=== PATIENT | female | born 1975 | race Caucasian/White ===

== ENCOUNTER 2017-09-15 21:23 | Emergency (ER) | payer BC ==
[2017-09-15] MEDS ORDERED: Metoprolol Tartrate 50 MG TAB ONE (22:06)
== END 2017-09-15 22:30 | disposition home or self-care (01) ==
LOC: ERS 21:23
DX: I10 Essential (primary) hypertension (principal); M35.00 Sjogren syndrome, unspecified; M32.9 Systemic lupus erythematosus, unspecified; Z79.899 Other long term (current) drug therapy
CPT/HCPCS: 99283